=== PATIENT | male | born 2005 | race Caucasian/White ===

== ENCOUNTER 2024-09-01 10:09 | Emergency (ER) | payer OTHER, SELFPAY ==
--- NOTE | ~2024-09-01 | XR_ITS ---
XR chest 2V Ordering provider: Tran Coffman NP History: 19 years Male with . cough and wheezing . Comparison: None. FINDINGS: MEDIASTINUM: The cardiac silhouette is not enlarged. LUNGS: No effusions or pneumothorax. Loss on the right cardiac border is noted suggestive of atelecta sis versus pneumonia in the middle lobe. OTHER: No free air under the diaphragm. Dextroscoliosis. IMPRESSION: Atelectasis versus pneumonia in the middle lobe. Reviewed, dictated and finalized at location [facility]. [employer]
[2024-09-01 10:50] VITALS: BP 136/97; PULSE 107; RESP 20; TEMP 37.2; O2SAT 96
[2024-09-01 11:12] LABS: EDCOVIDSCREEN Negative (Negative); EDINFLUASCREEN Negative (Negative); EDINFLUBSCREEN Negative (Negative)
--- NOTE | 2024-09-01 11:27 | ED.URI ---
HPI - URI/Sore Throat General Chief Complaint: Upper Respiratory Infection Stated Complaint: Cough Time Seen by Provider: 09/01/24 11:27 Source: patient Mode of arrival: ambulatory Limitations: no limitations History of Present Illness HPI Narrative: 19 yo M presents with Mom with c/o cough for approx. 2 to 3 wks. For the past 4 days symptoms worse with chest congestion, chest tightness and SOB. Afebrile. Taking OTC mucinex to treat symptoms. All systems reviewed and negative except as noted above. Related Data Allergies Allergy/AdvReac Type Severity Reaction Status Date / Time No Known Allergies Allergy Verified 09/01/24 10:52 Review of Systems Review of Systems: CONSTITUTIONAL: Denies fever, chills, or sweats. EYES: Denies visual changes, redness, or discharge. ENT: Denies rhinorrhea, congestion, sore throat, or otalgia. CARDIOVASCULAR: Denies chest pain, palpitations, or edema. RESPIRATORY: Reports cough and dyspnea with exertion. GASTROINTESTINAL: Denies abdominal pain, nausea, vomiting, or diarrhea. GENITOURINARY: Denies dysuria or hematuria. SKIN: Denies rash or itching. MUSCULOSKELETAL: Denies back pain, joint pain, or myalgia. NEUROLOGIC: Denies headache, numbness, or weakness. PSYCHIATRIC: Denies anxiety or depression. All other systems reviewed are negative, except as documented in HPI. PMFSH Comments At time of signature, agree with nursing past medical, surgical, social and family history. There is no relevant family history pertinent to the presenting complaint. Exam Narrative: GENERAL: This is a well-nourished, well-developed patient, ill-appearing but in no acute distress HEAD: normocephalic, atraumatic. EYES: PERRL. Sclera clear/white. Vision is grossly intact. EARS: External ears normal, auditory canals clear and without drainage, TMs normal without perforation. Hearing grossly intact. NOSE: External nose normal with no obvious nasal discharge, nares without redness, no rhinorrhea. THROAT: Mucous membranes moist, posterior pharynx clear. NECK: Neck supple, non-tender without lymphadenopathy, masses or thyromegaly. CARDIOVASCULAR: Regular rate and rhythm without murmurs, gallops, or rubs. RESPIRATORY: Decreased throughout all lung banks with expiratory wheeze. Breath sounds equal bilaterally. No rales, or rhonchi. SKIN: warm, Dry, intact with no suspicious lesions or rash, good texture and turgor. NEURO: awake, alert, and oriented to person, place and time. There were no obvious focal neurologic abnormalities. EXTREMITIES: No joint tenderness, effusion, or edema noted. No calf tenderness. Negative Homans sign bilaterally. BACK: Nontender without deformity. No CVA tenderness. Course Course Level of Care: Express Care Visit Vital Signs Vital signs: Vital Signs Temperature 37.2 C 09/01/24 10:50 Pulse Rate 107 H 09/01/24 10:50 Respiratory Rate 20 09/01/24 10:50 Blood Pressure 136/97 H 09/01/24 10:50 Pulse Oximetry 96 09/01/24 10:50 Oxygen Delivery Room Air 09/01/24 10:50 Temperature 37.2 C 09/01/24 10:50 Pulse Rate 107 H 09/01/24 10:50 Respiratory Rate 20 09/01/24 10:50 Blood Pressure 136/97 H 09/01/24 10:50 Pulse Oximetry 96 09/01/24 10:50 Oxygen Delivery Room Air 09/01/24 10:50 Reviewed MDM - URI/Sore Throat MDM Narrative Medical decision making narrative: Discussed chest sign results with patient. Will treat patient for pneumonia due to symptoms and exam findings. Oxygen saturation 96% on room air. No respiratory distress. Patient is aware of diagnosis, understands and agrees to treatment plan. Anticipatory guidance given. Patient agrees to follow-up as directed and is aware of reasons to seek care at the emergency department. Portions of this record may have been created with voice recognition software Differential Diagnosis Differential diagnosis: Likely upper respiratory infection, sinusitis, viral infection, influenza and other (Pneumonia) Lab Data Labs: Lab Results 09/01/24 Range/Units 10:54 POC Influenza A Ag Negative (Negative) POC Influenza B Ag Negative (Negative) POC SARS CoV-2 Ag Negative (Negative) Imaging Data My impression: Agree with radiologist Radiologist's impression: XR chest 2V Ordering provider: Tran Coffman NP History: 19 years Male with . cough and wheezing . Comparison: None. FINDINGS: MEDIASTINUM: The cardiac silhouette is not enlarged. LUNGS: No effusions or pneumothorax. Loss on the right cardiac border is noted suggestive of atelectasis versus pneumonia in the middle lobe. OTHER: No free air under the diaphragm. Dextroscoliosis. IMPRESSION: Atelectasis versus pneumonia in the middle lobe. Discharge Plan Discharge Clinical Impression: Pneumonia Qualifiers: Pneumonia type: due to unspecified organism Laterality: right Lung location: middle lobe of lung Qualified Code(s): J18.9 - Pneumonia, unspecified organism Patient Disposition: Home, Self-Care Condition: Stable Instructions: Antibiotic Form, Pneumonia (ED) Additional Instructions: The x-ray of your chest shows pneumonia. Take medications as prescribed. Continue taking [id number] Mucinex as directed on packaging. Drink at least 64 oz of water a day. Follow-up with your doctor if symptoms are not improving. For any worsening of your symptoms go to the ER. Patient Language: Trinidadian Prescriptions: New (DME) Aerochamber Plus Z Stat Spacer See Rx Instructions .Route Qty: 1 0RF Rx Instructions: As directed azithromycin 250 mg tablet See Rx Instructions .ROUTE .COMPLEX Qty: 6 0RF Rx Instructions: For 250 mg dose pack: take 500 mg today (day 1), then 250 mg for 4 days (days 2-5) prednisone 20 mg tablet 40 mg PO DAILY 5 Days Qty: 10 0RF albuterol sulfate 90 mcg/actuation HFA aerosol inhaler 2 puff inhalation Q4-6H PRN (Reason: shortness of breath or wheezing) Qty: 8.5 0RF benzonatate 200 mg capsule 200 mg PO TID PRN (Reason: cough) Qty: 20 0RF Follow-up/Referrals: PHYSICIAN,SERVICE ADVISOR [Primary Care Provider] - Stand Alone Forms: Work/School Release IP Time of Disposition: 12:31
[2024-09-01] MEDS: ALBUTEROL SULFATE NEB 2.5 MG/3 ML INH INHALATION (11:37)
== END 2024-09-01 12:42 | disposition home or self-care (01) ==
PROVIDERS: Emergency Provider Nurse Practitioner Family
DX: J18.1 Lobar pneumonia, unspecified organism (principal); Z20.822 Contact with and (suspected) exposure to COVID-19
CPT/HCPCS: 71046; 87426; 87804; 99203; G0463